=== PATIENT | female | born 1935 | race Caucasian/White ===

== ENCOUNTER 2024-10-11 15:12 | Observation (INO) ==
[2024-10-11 15:31] VITALS: BMI 40.0
--- NOTE | 2024-10-11 16:09 | EKG ---
Test Reason : shortness of breath Blood Pressure : */* mmHG Vent. Rate : 87 BPM Atrial Rate : * BPM P-R Int : * ms QRS Dur : 94 ms QT Int : 344 ms P-R-T Axes : * -20 9 degrees QTc Int : 413 ms Atrial fibrillation with occasional ventricular-paced complexes Cannot rule out Anterior infarct , age undetermined Nonspecific ST and T wave abnormality Abnormal ECG No previous ECGs available Confirmed by Larry Ly MD ([id number]) on 10/12/2024 7:48:59 AM Referred By: Confirmed By: Larry Ly MD
[2024-10-11 16:24] LABS: BASOPHILS % (AUTO) 0.5 % (0.2-1.0); EOSINOPHILS % (AUTO) 0.2 % (0.9-2.9); LYMPHOCYTES # (AUTO) 1.1 X10^3/uL (1.3-2.9); LYMPHOCYTES % (AUTO) 13.7 % (21.0-51.0); MEAN CORPUSCULAR HEMOGLOBIN 31.7 pg (27.0-34.0); MEAN CORPUSCULAR HGB CONC 33.3 g/dL (33.0-35.0); MEAN CORPUSCULAR VOLUME 95.2 fL (80.0-100.0); MEAN PLATELET VOLUME 9.3 fL (7.4-11.0); MONOCYTES # (AUTO) 1.2 x10^3/uL (0.3-0.8); MONOCYTES % (AUTO) 14.8 % (0.0-13.0); NEUTROPHILS # (AUTO) 5.6 x10^3/uL (2.2-4.8); NEUTROPHILS % (AUTO) 70.8 % (42.0-75.0); PLATELET COUNT 158 X10^3/uL (150.0-450.0); RED BLOOD COUNT 4.41 X10^6/uL (3.5-5.4); RED CELL DISTRIBUTION WIDTH 15.1 % (11.6-16.5); WHITE BLOOD COUNT 7.9 X10^3/uL (3.6-10.0)
[2024-10-11 16:45] LABS: ALANINE AMINOTRANSFERASE 28 Units/L (12-78); ALKALINE PHOSPHATASE 145 Units/L (46-116); ASPARTATE AMINO TRANSFERASE 22 Units/L (15-37); BLOOD UREA NITROGEN 14 mg/dL (7-18); CALCIUM 8.6 mg/dL (8.5-10.1); CARBON DIOXIDE 27.5 mmol/L (21-32); CHLORIDE 100 mmol/L (98-107); COR CA(FOR HYPOALB) 9.4 mg/dL (8.5-10.1); COR NA(FOR HYPERGLY) 138 mmol/L (136-145); CREATINE KINASE 56 Units/L (26-192); GLUCOSE 207 mg/dL (65-99); POTASSIUM 4.4 mmol/L (3.5-5.1); SODIUM 135 mmol/L (136-145); TOTAL PROTEIN 6.7 g/dL (6.4-8.2); eGFR NON BLACK RACES 50 (>60)
--- NOTE | 2024-10-11 16:55 | DR.GENAD ---
HPI Time Seen Time Seen by Provider: 10/11/24 16:55 PCP Primary Care Physician: RITU HPI Comment HPI Comment: Patient with complaint of shortness of breath cough and orthopnea worsening over the last 2 nights. Patient does have a history of CHF and COPD. She only uses Lasix as needed. Denies any chest pain Complaint/Symptoms Chief Complaint:: Family member states for the past couple of days her a-fib has been acting up and then two nights ago she started having a dry cough that has now produced into a productive cough. COVID-19 Coronavirus risk:travel/contact w/high risk person: No Has patient experienced Coronavirus symptoms: No Source History Provided: Family Member Mode of Arrival Mode of Arrival: Wheelchair Timing Onset of Chief Complaint: 10/09/24 PMH PMH Past Medical History: Yes Past Medical History: CHF, COPD, Dementia, Diabetes, Dyslipidemia, Hypothyroidism and Sleep Apnea Past Medical History Comment: a-fib, pacemaker/defib Past Surgical History: Yes Surgical History: Ortho Surgery Past Surgical History Comment: cataracts, hip x2, knee Family History History of Family Medical Conditions: Yes Family Medical History: Coronary Artery Disease Social History Does patient currently use any type of tobacco product: No Have you used tobacco products in the last 12 months: No Type of Tobacco Use: None Does any household member use tobacco: No Alcohol Use: None Do you use any recreational Drugs:: No Lives With: Family Lives Where: Home Travel Risk Coronavirus risk:travel/contact w/high risk person: No Has patient experienced Coronavirus symptoms: No Infectious screening In the last 2 months have you had wt loss of >10#?: NO Have you had fever, night sweats or hemotysis?: No Have you traveled outside the country in the last 6 months?: No Isolation: Standard ROS Review of Systems Constitutional: No Symptoms Reported Eyes: No Symptoms Reported ENTM: No Symptoms Reported Respiratoy: See HPI and Short of Breath Cardiovascular: See HPI, Edema and Other (Chronic A-fib on Eliquis); negative Chest Pain or Syncope Gastrointestinal/Abdominal: No Symptoms Reported Genitourinary: No Symptoms Reported Neurological: No Symptoms Reported Musculoskeletal: No Symptoms Reported Integumentary: No Symptoms Reported Hematologic/Lymphatic: No Symptoms Reported Endocrine: No Symptoms Reported Psychiatric: No Symptoms Reported All Other Systems: Reviewed and Negative PE Vital Signs Vitals: Vital Signs Temperature 98.3 F Pulse Rate 86 Pulse Rate 85 Pulse Rate 95 Pulse Rate 89 Pulse Rate 88 Pulse Rate 77 Pulse Rate 87 Pulse Rate 84 Pulse Rate 89 Pulse Rate 87 Respiratory Rate 22 Respiratory Rate 27 Respiratory Rate 26 Respiratory Rate 26 Respiratory Rate 26 Respiratory Rate 27 Respiratory Rate 26 Blood Pressure 118/65 Blood Pressure 128/69 Blood Pressure 119/62 Blood Pressure 128/86 O2 Sat by Pulse Oximetry 92 O2 Sat by Pulse Oximetry 99 O2 Sat by Pulse Oximetry 97 O2 Sat by Pulse Oximetry 99 O2 Sat by Pulse Oximetry 99 O2 Sat by Pulse Oximetry 98 O2 Sat by Pulse Oximetry 99 O2 Sat by Pulse Oximetry 98 O2 Sat by Pulse Oximetry 98 O2 Sat by Pulse Oximetry 96 General Limitations: No Limitations General Appearance: Alert and In Distress (Shortness of breath and hypoxia) Head Head Exam: Normal Inspection Eyes Eye exam: Normal Appearance ENT ENT Exam: Normal Exam External Ear Exam: Normal External Inspection TM/Canal Exam: Bilateral: Normal Nose Exam: Normal Nose Exam Mouth Exam: Normal Inspection Throat Exam: Normal Inspection Neck Neck Exam: Normal Inspection Chest Chest Inspection: Normal Inspection Respiratory Respiratory Exam: Normal Lung Sounds Bilat Respiratory Exam: Bilateral: Wheezing and Bilateral: Crackles Cardiovascular Cardiovascular Exam: Regular Rate and Normal Rhythm Abdominal Exam Abdominal Exam: Normal Inspection, Normal Bowel Sounds and Soft Extremities Extremities Exam: Normal Inspection Back Back Exam: Normal Inspection Neurologic Neurological Exam: Alert and Oriented X3 Psychiatric Psychiatric Exam: Normal Affect and Normal Mood Skin Skin Exam: Warm, Dry, Intact and Normal Color COURSE Consultation Called: 18:40 Consultation Comments: Discussed case with Dr. Bravo. She is agreeable with admission for CHF and COPD exacerbation. Patient does happen to have UTI and wi ll treat with antibiotics. Patient had Lasix and a breathing treatment and had some improvement, however she still having need of oxygen to maintain O2 sats over 94%. [facility] Labs Reviewed 10/11/24 16:11 10/11/24 16:11 Laboratory: WBC 7.9 X10^3/uL (3.6-10.0) 10/11/24 16:11 RBC 4.41 X10^6/uL (3.5-5.4) 10/11/24 16:11 Hgb 14.0 g/dL (12.0-16.0) 10/11/24 16:11 Hct 42.0 % (36.0-47.0) 10/11/24 16:11 MCV 95.2 fL (80.0-100.0) 10/11/24 16:11 MCH 31.7 pg (27.0-34.0) 10/11/24 16:11 MCHC 33.3 g/dL (33.0-35.0) 10/11/24 16:11 RDW 15.1 % (11.6-16.5) 10/11/24 16:11 Plt Count 158 X10^3/uL (150.0-450.0) 10/11/24 16:11 MPV 9.3 fL (7.4-11.0) 10/11/24 16:11 Neut % (Auto) 70.8 % (42.0-75.0) 10/11/24 16:11 Lymph % (Auto) 13.7 % (21.0-51.0) L 10/11/24 16:11 [place] % (Auto) 14.8 % (0.0-13.0) H 10/11/24 16:11 Eos % (Auto) 0.2 % (0.9-2.9) L 10/11/24 16:11 Baso % (Auto) 0.5 % (0.2-1.0) 10/11/24 16:11 Neut # (Auto) 5.6 x10^3/uL (2.2-4.8) H 10/11/24 16:11 Lymph # (Auto) 1.1 X10^3/uL (1.3-2.9) L 10/11/24 16:11 [place] # (Auto) 1.2 x10^3/uL (0.3-0.8) H 10/11/24 16:11 Eos # (Auto) 0.0 x10^3/uL (0.0-0.2) 10/11/24 16:11 Baso # (Auto) 0.0 X10^3/uL (0.0-0.1) 10/11/24 16:11 Absolute Nucleated RBC 0.1 /100WBC 10/11/24 16:11 Sodium 135 mmol/L (136-145) L 10/11/24 16:11 Corrected Sodium 138 mmol/L (136-145) 10/11/24 16:11 Potassium 4.4 mmol/L (3.5-5.1) 10/11/24 16:11 Chloride 100 mmol/L (98-107) 10/11/24 16:11 Carbon Dioxide 27.5 mmol/L (21-32) 10/11/24 16:11 BUN 14 mg/dL (7-18) 10/11/24 16:11 Creatinine 1.10 mg/dL (0.55-1.02) H 10/11/24 16:11 Est GFR (MDRD) Af Amer > 60 (>60) 10/11/24 16:11 Est GFR (MDRD) Non-Af 50 (>60) L 10/11/24 16:11 Glucose 207 mg/dL (65-99) H 10/11/24 16:11 Calcium 8.6 mg/dL (8.5-10.1) 10/11/24 16:11 Corrected Calcium 9.4 mg/dL (8.5-10.1) 10/11/24 16:11 Total Bilirubin 0.60 mg/dL (0.2-1.0) 10/11/24 16:11 AST 22 Units/L (15-37) 10/11/24 16:11 ALT 28 Units/L (12-78) 10/11/24 16:11 Alkaline Phosphatase 145 Units/L (46-116) H 10/11/24 16:11 Creatine Kinase 56 Units/L (26-192) 10/11/24 16:11 Troponin I High Sens 19.5 ng/L (4.0-60.0) 10/11/24 16:11 B-Natriuretic Peptide 796 pg/mL (0-79) H 10/11/24 16:11 Total Protein 6.7 g/dL (6.4-8.2) 10/11/24 16:11 Albumin 3.0 g/dL (3.4-5.0) L 10/11/24 16:11 Globulin 3.7 g/dL (2.5-4.5) 10/11/24 16:11 Albumin/Globulin Ratio 0.8 Ratio (1.1-2.1) L 10/11/24 16:11 Specimen Type Clean catch urine 10/11/24 17:55 Urine Color Yellow (YELLOW) 10/11/24 17:55 Urine Appearance Hazy (CLEAR) 10/11/24 17:55 Urine pH 6.0 (5.0 - 8.0) 10/11/24 17:55 Ur Specific [place] 1.020 (1.000-1.030) 10/11/24 17:55 Urine Protein 2+ (NEGATIVE) 10/11/24 17:55 Urine Glucose (UA) Negative (NEGATIVE) 10/11/24 17:55 Urine Ketones Negative (NEGATIVE) 10/11/24 17:55 Urine Blood 3+ (NEGATIVE) 10/11/24 17:55 Urine Nitrite Negative (NEGATIVE) 10/11/24 17:55 Urine Bilirubin Negative (NEGATIVE) 10/11/24 17:55 Urine Urobilinogen Normal (NORMAL) 10/11/24 17:55 Ur Leukocyte Esterase 1+ (NEGATIVE) 10/11/24 17:55 Urine RBC 0-2 /HPF (0-3) 10/11/24 17:55 Urine WBC 0-2 /HPF (0-5) 10/11/24 17:55 Ur Squamous Epith Cells Rare /HPF (NEGATIVE) 10/11/24 17:55 Urine Bacteria 3+ /HPF (NEGATIVE) 10/11/24 17:55 Urine Yeast Few /HPF (NEGATIVE) 10/11/24 17:55 Ur Culture Indicated? Yes/culture set up 10/11/24 17:55 SARS-CoV-2 (PCR) Negative (NEGATIVE) 10/11/24 16:03 Influenza Type A (PCR) Negative (NEGATIVE) 10/11/24 16:03 Influenza Type B (PCR) Negative (NEGATIVE) 10/11/24 16:03 RSV (PCR) Negative (NEGATIVE) 10/11/24 16:03 Opioid Opioid Risk Tool Age (Santiago box if 16-45): No History of Preadolescent Sexual Abuse: No Total: 0 Total Score Risk Category: Low Risk Copyright: Tigre VARGAS predicting aberrant behaviors Discharge Plan Diagnosis Discharge Problem: COPD exacerbation, Hypoxia CHF exacerbation Qualifiers: Heart failure type: unspecified Qualified Code(s): I50.9 - Heart failure, unspecified Discharge Plan Patient Disposition: 09 ADMITTED INPATIENT Condition: Stable Prescriptions: No Action Januvia 100 mg tablet 100 mg PO QDAY albuterol sulfate 90 mcg/actuation HFA aerosol inhaler 2 puff inhalation PRN PRN carvedilol 12.5 mg tablet 12.5 mg PO BID montelukast 10 mg tablet 10 mg PO QDAY lisinopril 5 mg tablet 5 mg PO QDAY levothyroxine 25 mcg tablet 12.5 mcg PO QDAY tramadol 50 mg Tablet 50 mg PO DAILY PRN spironolactone 25 mg Tablet 25 mg PO DAILY simvastatin 40 mg Tablet 40 mg PO HS Trelegy Ellipta 100-62.5-25 mcg Blister With Device 2 inh INHALATION DAILY Eliquis 5 mg tablet 5 mg PO BID Health Concerns: Post Hospitalization: new medications and changes needed to prevent readmission or further decline. Pt educated and given instructions on all concerns. Plan of Treatment: Continue with present treatment and follow up plan. Pt is to keep follow up appointment as instructed and take medications as ordered. Orders to Discharge Patient Discharge Orders: Transfer (Routine); Ordered 10/11/24 Ordered By: Cornell Seo Follow ups/Referrals Follow ups/Referrals: [facility],None [Primary Care Provider] - 3 days Instructions Stand Alone Forms: Find Help Web Site, Post Hospital Follow Up Care
[2024-10-11] MEDS ORDERED: LASIX ONE (17:23)
[2024-10-11] MEDS ORDERED: DUONEB 0.5 MG/3 MG (3 mL) NEB ONE (17:23)
[2024-10-11] MEDS: LASIX IVP ONE (17:24)
[2024-10-11] MEDS: DUONEB 0.5 MG/3 MG (3 mL) NEB ONE (17:24)
[2024-10-11 18:02] LABS: BILIRUBIN,URINE NEGATIVE (NEGATIVE); BLOOD/HEMOGLOBIN,URINE 3+ (NEGATIVE); GLUCOSE, URINE NEGATIVE (NEGATIVE); KETONES,URINE NEGATIVE (NEGATIVE); LEUKOCYTE ESTERASE ,URINE 1+ (NEGATIVE); NITRITES,URINE NEGATIVE (NEGATIVE); PROTEIN,URINE 2+ (NEGATIVE); UROBILINOGEN,URINE NORMAL (NORMAL)
[2024-10-11 18:18] LABS: APPEARANCE,URINE HAZY (CLEAR); COLOR,URINE YELLOW (YELLOW)
[2024-10-11 18:19] LABS: BACTERIA,URINE 3+ /HPF (NEGATIVE); RBC,URINE 0-2 /HPF (0-3); SQUAMOUS EPITHELIAL CELL,UR RARE /HPF (NEGATIVE); YEAST,URINE FEW /HPF (NEGATIVE)
[2024-10-11] MEDS ORDERED: CONSULT PHARMACY - POTASSIUM & MAGNESIUM XX SCH (20:09)
[2024-10-11] MEDS: MACROBID CAP 100 MG EXT REL PO SCH (21:30)
[2024-10-11] MEDS: COREG TAB 12.5 MG PO SCH (21:30)
[2024-10-11] MEDS: ELIQUIS PO SCH (21:30)
[2024-10-11] MEDS: ZOCOR TAB 40 MG PO SCH (21:30)
[2024-10-11] MEDS: PULMICORT NEB TX 0.5 MG NEB SCH (22:11)
[2024-10-11] MEDS: DUONEB 0.5 MG/3 MG (3 mL) NEB SCH (22:11)
[2024-10-11 22:28] LABS: ABG BASE EXCESS 3.3 mmol/L (-2.0-2.0); ABG HCO3 29.5 mmol/L (22-26)
[2024-10-11 22:30] LABS: ABG ALLEN TEST POS
[2024-10-11] MEDS: SNACK - Diabetic Appropriate PO SCH (22:42)
[2024-10-12] MEDS: LASIX IVP ONE (02:54)
--- NOTE | 2024-10-12 05:08 | RAD ---
EXAM: CHEST, 1 VIEW HISTORY: Family member states for the past couple of days her a-fib has been acting up and then two nights ago she started having a dry cough, SOB; COMPARISON: 08/02/2023 FINDINGS: The trachea is midline. The cardiac silhouette is mildly enlarged. Permanent pacing device.. The l ungs are clear without focal infiltrate or effusion. The bony thorax is unremarkable. IMPRESSION: Mild cardiomegaly No active cardiopulmonary disease THIS IS AN ELECTRONICALLY VERIFIED FINAL REPORT 10/12/2024 5:04 AM - Electronically signed by Ryan Smart MD
[2024-10-12 05:34] LABS: HEMOGLOBIN 13.7 g/dL (12.0-16.0); MEAN CORPUSCULAR VOLUME 94.7 fL (80.0-100.0); WHITE BLOOD COUNT 7.7 X10^3/uL (3.6-10.0)
[2024-10-12 05:40] LABS: BASOPHILS % (AUTO) 0.3 % (0.2-1.0); EOSINOPHILS # (AUTO) 0.1 x10^3/uL (0.0-0.2); EOSINOPHILS % (AUTO) 1.1 % (0.9-2.9); HEMATOCRIT 40.8 % (36.0-47.0); LYMPHOCYTES # (AUTO) 1.1 X10^3/uL (1.3-2.9); LYMPHOCYTES % (AUTO) 14.1 % (21.0-51.0); MEAN CORPUSCULAR HEMOGLOBIN 31.8 pg (27.0-34.0); MEAN CORPUSCULAR HGB CONC 33.6 g/dL (33.0-35.0); MEAN PLATELET VOLUME 9.6 fL (7.4-11.0); MONOCYTES # (AUTO) 1.3 x10^3/uL (0.3-0.8); NEUTROPHILS # (AUTO) 5.2 x10^3/uL (2.2-4.8); NEUTROPHILS % (AUTO) 67.5 % (42.0-75.0); PLATELET COUNT 141 X10^3/uL (150.0-450.0); RED BLOOD COUNT 4.31 X10^6/uL (3.5-5.4); RED CELL DISTRIBUTION WIDTH 14.9 % (11.6-16.5)
[2024-10-12 05:50] LABS: ALANINE AMINOTRANSFERASE 25 Units/L (12-78); ALBUMIN 3.1 g/dL (3.4-5.0); ALKALINE PHOSPHATASE 135 Units/L (46-116); ASPARTATE AMINO TRANSFERASE 21 Units/L (15-37); BLOOD UREA NITROGEN 12 mg/dL (7-18); CALCIUM 8.9 mg/dL (8.5-10.1); CARBON DIOXIDE 30.8 mmol/L (21-32); CHLORIDE 100 mmol/L (98-107); COR CA(FOR HYPOALB) 9.6 mg/dL (8.5-10.1); COR NA(FOR HYPERGLY) 140 mmol/L (136-145); CREATININE 0.83 mg/dL (0.55-1.02); GLUCOSE 141 mg/dL (65-99); POTASSIUM 3.5 mmol/L (3.5-5.1); SODIUM 139 mmol/L (136-145); TOTAL PROTEIN 6.6 g/dL (6.4-8.2); eGFR NON BLACK RACES > 60 (>60)
[2024-10-12] MEDS ORDERED: CONSULT PHARMACY - POTASSIUM & MAGNESIUM XX SCH (08:00)
--- NOTE | 2024-10-12 08:04 | RAD ---
EXAM:Portable chestHISTORY:Shortness of breathCOMPARISON:10/11/2024FINDINGS:Ther e is a pacemaker present in the left axilla. Heart remains enlarged. No congestive heart failure is noted. No acute alveolar infiltrates or pleural effusions identified. Bony thorax is unremarkable.IMPRESSION:Continued cardiomegaly without congestive heart failureNo definite acute infiltratesTHIS IS AN ELECTRONICALLY VERIFIED FINAL [id number]/12/2024 8:01 AM - Electronically signed by Kolton Jaquez MD
[2024-10-12 08:36] LABS: BILIRUBIN,URINE NEGATIVE (NEGATIVE); BLOOD/HEMOGLOBIN,URINE 1+ (NEGATIVE); GLUCOSE, URINE NEGATIVE (NEGATIVE); KETONES,URINE NEGATIVE (NEGATIVE); LEUKOCYTE ESTERASE ,URINE NEGATIVE (NEGATIVE); NITRITES,URINE NEGATIVE (NEGATIVE); PROTEIN,URINE NEGATIVE (NEGATIVE); UROBILINOGEN,URINE NORMAL (NORMAL)
[2024-10-12 08:49] LABS: APPEARANCE,URINE CLEAR (CLEAR); BACTERIA,URINE NEGATIVE /HPF (NEGATIVE); COLOR,URINE YELLOW (YELLOW); RBC,URINE 0-2 /HPF (0-3); SQUAMOUS EPITHELIAL CELL,UR RARE /HPF (NEGATIVE)
[2024-10-12] MEDS ORDERED: PATIENT'S HOME MEDICATION (Fluticasone-Umeclidin-Vilanter [Trelegy Ellipta] 100-62.5-25 mc IN SCH (09:00)
[2024-10-12] MEDS: ZESTRIL TAB 5 MG PO SCH (09:24)
[2024-10-12] MEDS: JANUVIA PO SCH (09:25)
[2024-10-12] MEDS: SINGULAIR TAB 10 MG PO SCH (09:25)
[2024-10-12] MEDS: ALDACTONE TAB 25 MG PO SCH (09:25)
[2024-10-12] MEDS: SYNTHROID 25 mcg TAB PO SCH (09:26)
[2024-10-12] MEDS: K-DUR TAB 20 MEQ PO SCH (09:26)
[2024-10-12] MEDS: LASIX IVP SCH (09:26)
[2024-10-12] MEDS ORDERED: SOLU-Medrol 40 MG VIAL IVP ONE (09:41)
[2024-10-12] MEDS ORDERED: ROCEPHIN VIAL 1 GRAM 1 G in NS 100 ML IV 100 ML IV SCH (09:45)
[2024-10-12] MEDS: NS 250 ML IV 250 ML IV ONE (11:20)
[2024-10-12] MEDS: SOLU-Medrol 40 MG VIAL IVP NR ×2 (11:22→15:28)
[2024-10-12] MEDS: ROCEPHIN VIAL 1 GRAM 1 G in NS 100 ML IV 100 ML IV SCH (11:22)
--- NOTE | 2024-10-12 12:48 | DR.CONSULT ---
CONSULT Consultation for Day of: Date: 10/12/24 Chief Complaint Chief Complaint: sob/cough/elevated hr Allergies Allergies Allergy/AdvReac Type Severity Reaction Status Date / Time prednisone Allergy Verified 08/01/24 10:17 History of Present Illness History of Present Illness: 89 yo female- no known cad( cath 2011/last stress 11/15)- had pulm side effects to amio thus stopped- multaq failed so now in 100% afib- problem is her ventricle went from 60% to 40% to 30 % on recent echo- sick fow week w cough/sob/fast hr to 160- better today after 1.8 liters diuresised Past Medical History Past Medical History: CHF, COPD, Dementia, Diabetes, Dyslipidemia, Hypothyroidism and Sleep Apnea Past Surgical History Surgical History: Unknown Family History Family Medical History: Diabetes Mellitus, Heart Failure and Hypertension Social History Does patient currently use any type of tobacco product: No Have you used tobacco products in the last 12 months: No Type of Tobacco Use: None Does any household member use tobacco: No Alcohol Use: None Drug Use: None Medications Home Medications: prednisone Allergy (Verified 08/01/24 10:17) CONTINUE taking the following medications apixaban 5 mg tablet (Eliquis) 5 mg PO BID 10/11/24 [History] Physical Exam Vital Signs: Vital Signs Temperature 97.8 F Pulse Rate [Left] 109 Pulse Rate 105 Pulse Rate 101 Respiratory Rate 20 Blood Pressure [Left Arm] 121/76 O2 Sat by Pulse Oximetry 96 O2 Sat by Pulse Oximetry 96 O2 Sat by Pulse Oximetry 96 sob wearing mask irreg irreg hr 90-100 lungs: dont sound bad soft cecilia pacer ok mild edema labs: hct 40 wbc 7.7 abg on fio2 28= 7.37 51 137 bnp 796 k 3.5 trop x 3 negative cxr: cardiomegaly w/o chf Plan (1) CHF exacerbation: Status: Acute Qualifiers: Heart failure type: unspecified Qualified Code(s): I50.9 - Heart failure, unspecified Narrative Support Text: diuresis as you are doing. add dig for rate control- cant push bb due to lungs- change scotty to entresto ( kidney ok) (2) COPD exacerbation: Status: Acute (3) Thoracic aortic aneurysm (TAA): Status: Acute Narrative Support Text: no longer following due to age (4) Cardiomyopathy: Status: None Narrative Support Text: suspect drop in EF due to afib/100% v paced in RV- will consider biv device in future (5) HLD (hyperlipidemia): Status: None (6) Essential hypertension: Status: None (7) Atrial fibrillation: Status: None
[2024-10-12] MEDS: LANOXIN or DIGITEK PO SCH (15:30)
[2024-10-12] MEDS: NovoLIN R (or HumuLIN R) SUBCUT PRN (21:50)
[2024-10-12] MEDS: NovoLIN R (or HumuLIN R) ONE (21:54)
--- NOTE | 2024-10-12 23:13 | DR.H&P ---
H&P History & Physical for Day of: H&P Date: 10/12/24 Chief Complaint Chief Complaint: Shortness of breath History of Present Illness History of Present Illness: Patient is a 89-year-old female with a past medical history of CHF, COPD, type 2 diabetes mellitus, hypothyroidism, JOSE DE JESUS, presenting with worsening shortness of breath for the past few days. Per daughter, patient was recently discovered to have worsening CHF by her vice president business & corporate development. She had her recent echo that revealed a low ejection fraction. We will need to get records. Labs/imaging: WBC 7.7, hemoglobin 13.7, platelets 141, sodium 139, potassium 3.5, creatinine 0.83, glucose 141, magnesium 1.6, troponin negative x 3, BNP 796, ABG: pH 7.37, pCO2 51, pO2 137, HCO3 29, 99% O2 sat on FiO2 28%. COVID/flu/RSV negative, UA consistent with infection, chest x-ray revealed no acute cardiopulmonary findings, urine culture prelim positive for gram-negative rods, blood cultures pending. Will treat and admit patient for CHF exacerbation, COPD exacerbation, acute cystitis, hypomagnesemia. Will get records for recent echo. Will also consult cardiologyDr. Aliyah. Start on IV antibiotics Rocephin. IV steroids Solu-Medrol 40 mg daily. Scheduled bronchodilators. Restart home medications. Wean/titrate supplemental oxygen as tolerated. Otherwise continue with current treatment plan. Continue closely monitor and follow-up labs/imaging as well as recommendations from cardiology. Past Medical History Past Medical History: CHF, COPD, Dementia, Diabetes, Dyslipidemia, Hypothyroidism and Sleep Apnea Past Surgical History Surgical History: Unknown Family History Family Medical History: Diabetes Mellitus, Heart Failure and Hypertension Social History Does patient currently use any type of tobacco product: No Have you used tobacco products in the last 12 months: No Type of Tobacco Use: None Does any household member use tobacco: No Alcohol Use: None Drug Use: None Medications Home Medications: Home Medications Medication Instructions Recorded Confirmed Type albuterol sulfate 90 mcg/actuation 2 puff inhalation PRN PRN 06/29/23 10/11/24 History aerosol inhaler carvedilol 12.5 mg tablet 12.5 mg PO BID 06/29/23 10/11/24 History levothyroxine 25 mcg tablet 12.5 mcg PO QDAY 06/29/23 10/11/24 History lisinopril 5 mg tablet 5 mg PO QDAY 06/29/23 10/11/24 History montelukast 10 mg tablet 10 mg PO QDAY 06/29/23 10/11/24 History sitagliptin phosphate 100 mg 100 mg PO QDAY 06/29/23 10/11/24 History tablet (Januvia) fluticasone fur. 100 mcg-umeclid 2 inh inhalation DAILY 02/17/24 10/11/24 History 62.5 mcg-vilant 25 mcg inhalat.powder (Trelegy Ellipta) simvastatin 40 mg tablet 40 mg PO HS 02/17/24 10/11/24 History spironolactone 25 mg tablet 25 mg PO DAILY 02/17/24 10/11/24 History tramadol 50 mg tablet 50 mg PO DAILY PRN 02/17/24 10/11/24 History apixaban 5 mg tablet (Eliquis) 5 mg PO BID 10/11/24 10/11/24 History Allergies Allergies Allergy/AdvReac Type Severity Reaction Status Date / Time prednisone Allergy Verified 08/01/24 10:17 Labs 10/12/24 04:46 10/12/24 04:46 Labs: 10/11/24 17:55 Urine,Clean Catch Urine Culture - Preliminary Laboratory WBC 7.7 X10^3/uL (3.6-10.0) 10/12/24 04:46 RBC 4.31 X10^6/uL (3.5-5.4) 10/12/24 04:46 Hgb 13.7 g/dL (12.0-16.0) 10/12/24 04:46 Hct 40.8 % (36.0-47.0) 10/12/24 04:46 MCV 94.7 fL (80.0-100.0) 10/12/24 04:46 MCH 31.8 pg (27.0-34.0) 10/12/24 04:46 MCHC 33.6 g/dL (33.0-35.0) 10/12/24 04:46 RDW 14.9 % (11.6-16.5) 10/12/24 04:46 Plt Count 141 X10^3/uL (150.0-450.0) L 10/12/24 04:46 MPV 9.6 fL (7.4-11.0) 10/12/24 04:46 Neut % (Auto) 67.5 % (42.0-75.0) 10/12/24 04:46 Lymph % (Auto) 14.1 % (21.0-51.0) L 10/12/24 04:46 [place] % (Auto) 17.0 % (0.0-13.0) H 10/12/24 04:46 Eos % (Auto) 1.1 % (0.9-2.9) 10/12/24 04:46 Baso % (Auto) 0.3 % (0.2-1.0) 10/12/24 04:46 Neut # (Auto) 5.2 x10^3/uL (2.2-4.8) H 10/12/24 04:46 Lymph # (Auto) 1.1 X10^3/uL (1.3-2.9) L 10/12/24 04:46 [place] # (Auto) 1.3 x10^3/uL (0.3-0.8) H 10/12/24 04:46 Eos # (Auto) 0.1 x10^3/uL (0.0-0.2) 10/12/24 04:46 Baso # (Auto) 0.0 X10^3/uL (0.0-0.1) 10/12/24 04:46 Absolute Nucleated RBC 0.1 /100WBC 10/12/24 04:46 Sample Site Rrad 10/11/24 21:54 ABG pH 7.370 (7.35-7.45) 10/11/24 21:54 ABG pCO2 51.0 mmHg (35.0-45.0) H* 10/11/24 21:54 ABG pO2 137.0 mmHg (80.0-100.0) H 10/11/24 21:54 ABG HCO3 29.5 mmol/L (22-26) H 10/11/24 21:54 ABG O2 Saturation 99.0 % (90-100) 10/11/24 21:54 ABG Base Excess 3.3 mmol/L (-2.0-2.0) H 10/11/24 21:54 [place] Test Pos 10/11/24 21:54 A-a Gradient -1.0 mmHg 10/11/24 21:54 FiO2 28.0 10/11/24 21:54 Blood Gas Comments Da abg well-mtf/mt 10/11/24 21:54 Sodium 139 mmol/L (136-145) 10/12/24 04:46 Corrected Sodium 140 mmol/L (136-145) 10/12/24 04:46 Potassium 3.5 mmol/L (3.5-5.1) 10/12/24 04:46 Chloride 100 mmol/L (98-107) 10/12/24 04:46 Carbon Dioxide 30.8 mmol/L (21-32) 10/12/24 04:46 BUN 12 mg/dL (7-18) 10/12/24 04:46 Creatinine 0.83 mg/dL (0.55-1.02) 10/12/24 04:46 Est GFR (MDRD) Af Amer > 60 (>60) 10/12/24 04:46 Est GFR (MDRD) Non-Af > 60 (>60) 10/12/24 04:46 Glucose 141 mg/dL (65-99) H 10/12/24 04:46 POC Glucose (mg/dL) 364 mg/dL (65-99) H 10/12/24 20:55 Calcium 8.9 mg/dL (8.5-10.1) 10/12/24 04:46 Corrected Calcium 9.6 mg/dL (8.5-10.1) 10/12/24 04:46 Magnesium 1.6 mg/dL (2.0-2.9) L 10/12/24 04:46 Total Bilirubin 0.70 mg/dL (0.2-1.0) 10/12/24 04:46 AST 21 Units/L (15-37) 10/12/24 04:46 ALT 25 Units/L (12-78) 10/12/24 04:46 Alkaline Phosphatase 135 Units/L (46-116) H 10/12/24 04:46 Creatine Kinase 56 Units/L (26-192) 10/11/24 16:11 Troponin I High Sens 20.1 ng/L (4.0-60.0) 10/12/24 04:46 B-Natriuretic Peptide 796 pg/mL (0-79) H 10/11/24 16:11 Total Protein 6.6 g/dL (6.4-8.2) 10/12/24 04:46 Albumin 3.1 g/dL (3.4-5.0) L 10/12/24 04:46 Globulin 3.5 g/dL (2.5-4.5) 10/12/24 04:46 Albumin/Globulin Ratio 0.9 Ratio (1.1-2.1) L 10/12/24 04:46 TSH 3rd Generation 0.343 uIU/mL (0.358-3.74) L 10/12/24 04:45 Specimen Type Clean catch urine 10/12/24 07:49 Urine Color Yellow (YELLOW) 10/12/24 07:49 Urine Appearance Clear (CLEAR) 10/12/24 07:49 Urine pH 6.0 (5.0 - 8.0) 10/12/24 07:49 Ur Specific [place] 1.015 (1.000-1.030) 10/12/24 07:49 Urine Protein Negative (NEGATIVE) 10/12/24 07:49 Urine Glucose (UA) Negative (NEGATIVE) 10/12/24 07:49 Urine Ketones Negative (NEGATIVE) 10/12/24 07:49 Urine Blood 1+ (NEGATIVE) 10/12/24 07:49 Urine Nitrite Negative (NEGATIVE) 10/12/24 07:49 Urine Bilirubin Negative (NEGATIVE) 10/12/24 07:49 Urine Urobilinogen Normal (NORMAL) 10/12/24 07:49 Ur Leukocyte Esterase Negative (NEGATIVE) 10/12/24 07:49 Urine RBC 0-2 /HPF (0-3) 10/12/24 07:49 Urine WBC 0-2 /HPF (0-5) 10/12/24 07:49 Ur Squamous Epith Cells Rare /HPF (NEGATIVE) 10/12/24 07:49 Urine Bacteria Negative /HPF (NEGATIVE) 10/12/24 07:49 Urine Yeast Few /HPF (NEGATIVE) 10/11/24 17:55 Ur Culture Indicated? No/not indicated 10/12/24 07:49 SARS-CoV-2 (PCR) Negative (NEGATIVE) 10/11/24 16:03 Influenza Type A (PCR) Negative (NEGATIVE) 10/11/24 16:03 Influenza Type B (PCR) Negative (NEGATIVE) 10/11/24 16:03 RSV (PCR) Negative (NEGATIVE) 10/11/24 16:03 Review of Systems Constitutional: Weakness Eyes: No Symptoms Reported ENT: No Symptoms Reported Respiratory: Cough, Shortness of Breath and Wheezing Cardiovascular: No Symptoms Reported Gastrointestinal: No Symptoms Reported Genitourinary: No Symptoms Reported Musculoskeletal: No Symptoms Reported Skin: No Symptoms Reported Neurological: No Symptoms Reported Physical Exam Vital Signs: Vital Signs Temperature 97.6 F Temperature 97.4 F Pulse Rate [Left] 127 Pulse Rate [Left] 123 Pulse Rate 107 Pulse Rate 105 Respiratory Rate 20 Respiratory Rate 23 Blood Pressure [Left Arm] 133/78 Blood Pressure [Left Arm] 121/74 O2 Sat by Pulse Oximetry 91 O2 Sat by Pulse Oximetry 91 O2 Sat by Pulse Oximetry 92 Oriented: Normal Eyes: Normal Ear: Normal Nose: Normal Throat: Normal Respiratory: Diminished Throughout Cardiovascular: Normal : Normal Auscultation: Bowel Sounds: Normal Palpation: Normal Tenderness: Normal Skin: Normal Musculoskeletal: Normal Psychiatric: Normal Mood Description: Calm and Appropriate Affect: Normal Speech Pattern: Clear and Appropriate Assessment/Plan (1) CHF exacerbation: Qualifiers: Heart failure type: unspecified Qualified Code(s): I50.9 - Heart failure, unspecified Status: Acute (2) COPD exacerbation: Status: Acute (3) Thoracic aortic aneurysm (TAA): Status: Acute (4) Cardiomyopathy: Status: None (5) HLD (hyperlipidemia): Status: None (6) Essential hypertension: Status: None (7) Atrial fibrillation: Status: None (8) Acute cystitis: Status: Acute Review H&P Reviewed: Yes Patient was examined?: Yes
[2024-10-13 05:29] LABS: BASOPHILS % (AUTO) 0.1 % (0.2-1.0); HEMATOCRIT 42.5 % (36.0-47.0); HEMOGLOBIN 14.3 g/dL (12.0-16.0); LYMPHOCYTES % (AUTO) 11.4 % (21.0-51.0); MEAN CORPUSCULAR HEMOGLOBIN 31.4 pg (27.0-34.0); MEAN CORPUSCULAR HGB CONC 33.5 g/dL (33.0-35.0); MEAN CORPUSCULAR VOLUME 93.9 fL (80.0-100.0); MEAN PLATELET VOLUME 9.7 fL (7.4-11.0); MONOCYTES # (AUTO) 1.2 x10^3/uL (0.3-0.8); MONOCYTES % (AUTO) 13.5 % (0.0-13.0); NEUTROPHILS # (AUTO) 6.9 x10^3/uL (2.2-4.8); PLATELET COUNT 187 X10^3/uL (150.0-450.0); RED BLOOD COUNT 4.53 X10^6/uL (3.5-5.4); RED CELL DISTRIBUTION WIDTH 15.3 % (11.6-16.5); WHITE BLOOD COUNT 9.2 X10^3/uL (3.6-10.0)
[2024-10-13 05:47] LABS: ALANINE AMINOTRANSFERASE 28 Units/L (12-78); ALBUMIN 3.1 g/dL (3.4-5.0); ALKALINE PHOSPHATASE 154 Units/L (46-116); ASPARTATE AMINO TRANSFERASE 19 Units/L (15-37); BLOOD UREA NITROGEN 19 mg/dL (7-18); CALCIUM 9.5 mg/dL (8.5-10.1); CHLORIDE 100 mmol/L (98-107); COR CA(FOR HYPOALB) 10.2 mg/dL (8.5-10.1); COR NA(FOR HYPERGLY) 142 mmol/L (136-145); CREATININE 1.06 mg/dL (0.55-1.02); GLUCOSE 238 mg/dL (65-99); MAGNESIUM 1.7 mg/dL (2.0-2.9); POTASSIUM 3.8 mmol/L (3.5-5.1); SODIUM 139 mmol/L (136-145); TOTAL PROTEIN 7.1 g/dL (6.4-8.2); eGFR NON BLACK RACES 52 (>60)
[2024-10-13] MEDS ORDERED: CONSULT PHARMACY - POTASSIUM & MAGNESIUM XX SCH (07:00)
[2024-10-13] MEDS: SOLU-Medrol 40 MG VIAL IVP SCH (09:17)
[2024-10-13] MEDS: MAG-OX TAB PO SCH (09:17)
[2024-10-13] MEDS: K-DUR TAB 20 MEQ PO SCH (09:17)
[2024-10-13] MEDS: LANOXIN INJ IVP ONE (09:20)
[2024-10-13] MEDS ORDERED: XOPENEX 1.25 MG/3 ML NEBULE NEB ONE (13:14)
[2024-10-13] MEDS: XOPENEX 1.25 MG/3 ML NEBULE NEB SCH (13:16)
[2024-10-13] MEDS ORDERED: MUCOMYST (RESPIRATORY USE ONLY) ONE (19:59)
[2024-10-13] MEDS ORDERED: SNACK - Diabetic Appropriate PO SCH (20:00)
--- NOTE | 2024-10-13 20:13 | PCM.PROG ---
Progress Note Progress Note for Day of Date of Exam: 10/13/24 Subjective Subjective: History/Background 89-year-old white female, admitted on 10-11-2024 for CHF exacerbation and COPD exacerbation. History of atrial fibrillation. Was not on digoxin before admission. Takes albuterol, thyroid medicine, carvedilol, and eliquis at home. Has borderline diabetes managed with Januvia. No home oxygen use. Previous reaction to steroids when younger, details unclear. Clinical Observations Found to be tachycardic this morning with heart rate in 120s to 130s. Monitor shows ST depression with occasional P waves. Non-therapeutic digoxin level (<0.20). Received 250 micrograms IV digoxin. Chest x-ray yesterday showed cardiomegaly without congestive heart failure. Oxygen saturation 93% this morning, down from 96% on admission. Coarse breath sounds with bronchi cracking. No phlegm production despite coughing. Heart rate at 30% to 35%. Blood sugar elevated due to steroids. Magnesium level low at 1.7. No bowel movement since Tuesday or Tuesday. Past Medical Family Social History Allergies: Allergies prednisone Allergy (Verified 08/01/24 10:17) Review of Systems ROS: No change since H&P Vital Signs and I&O's Vital Signs: Vital Signs Temperature 98.4 F Temperature 98.3 F Pulse Rate [Left] 120 Pulse Rate [Left] 115 Respiratory Rate 18 Respiratory Rate 19 Blood Pressure [Left Arm] 122/82 Blood Pressure [Left Arm] 138/89 O2 Sat by Pulse Oximetry 95 O2 Sat by Pulse Oximetry 96 Intake and Output: Intake & Output 10/11/24 10/12/24 10/13/24 10/14/24 11:59 11:59 11:59 11:59 Intake Total 1456 / 1456 720 / 720 Output Total 1850 / 1850 205 / 205 4 Balance -1830 / -1830 1251 / 1251 716 / 716 Physical Exam Oriented: Normal Eyes: Normal Ear: Normal Nose: Normal Throat: Normal Respiratory: Generalized, Diminished and Rhonchi Cardiovascular: Tachycardia : Normal Auscultation: Bowel Sounds: Normal Tenderness: Normal Skin: Normal Musculoskeletal: Normal Psychiatric: Normal Mood Description: Calm and Appropriate Affect: Normal Speech Pattern: Clear and Appropriate Laboratory and Diagnostics 10/13/24 04:25 10/13/24 04:25 Labs: 10/11/24 17:55 Urine,Clean Catch Urine Culture - Final Escherichia Coli 10/11/24 20:45 Blood Blood Culture - Preliminary 10/11/24 20:35 Blood Blood Culture - Preliminary Laboratory WBC 9.2 X10^3/uL (3.6-10.0) 10/13/24 04:25 RBC 4.53 X10^6/uL (3.5-5.4) 10/13/24 04:25 Hgb 14.3 g/dL (12.0-16.0) 10/13/24 04:25 Hct 42.5 % (36.0-47.0) 10/13/24 04:25 MCV 93.9 fL (80.0-100.0) 10/13/24 04:25 MCH 31.4 pg (27.0-34.0) 10/13/24 04:25 MCHC 33.5 g/dL (33.0-35.0) 10/13/24 04:25 RDW 15.3 % (11.6-16.5) 10/13/24 04:25 Plt Count 187 X10^3/uL (150.0-450.0) 10/13/24 04:25 MPV 9.7 fL (7.4-11.0) 10/13/24 04:25 Neut % (Auto) 75.0 % (42.0-75.0) 10/13/24 04:25 Lymph % (Auto) 11.4 % (21.0-51.0) L 10/13/24 04:25 [place] % (Auto) 13.5 % (0.0-13.0) H 10/13/24 04:25 Eos % (Auto) 0.0 % (0.9-2.9) L 10/13/24 04:25 Baso % (Auto) 0.1 % (0.2-1.0) L 10/13/24 04:25 Neut # (Auto) 6.9 x10^3/uL (2.2-4.8) H 10/13/24 04:25 Lymph # (Auto) 1.0 X10^3/uL (1.3-2.9) L 10/13/24 04:25 [place] # (Auto) 1.2 x10^3/uL (0.3-0.8) H 10/13/24 04:25 Eos # (Auto) 0.0 x10^3/uL (0.0-0.2) 10/13/24 04:25 Baso # (Auto) 0.0 X10^3/uL (0.0-0.1) 10/13/24 04:25 Absolute Nucleated RBC 0.0 /100WBC 10/13/24 04:25 Sample Site Rrad 10/11/24 21:54 ABG pH 7.370 (7.35-7.45) 10/11/24 21:54 ABG pCO2 51.0 mmHg (35.0-45.0) H* 10/11/24 21:54 ABG pO2 137.0 mmHg (80.0-100.0) H 10/11/24 21:54 ABG HCO3 29.5 mmol/L (22-26) H 10/11/24 21:54 ABG O2 Saturation 99.0 % (90-100) 10/11/24 21:54 ABG Base Excess 3.3 mmol/L (-2.0-2.0) H 10/11/24 21:54 Louis Test Pos 10/11/24 21:54 A-a Gradient -1.0 mmHg 10/11/24 21:54 FiO2 28.0 10/11/24 21:54 Blood Gas Comments Da abg well-mtf/mt 10/11/24 21:54 Sodium 139 mmol/L (136-145) 10/13/24 04:25 Corrected Sodium 142 mmol/L (136-145) 10/13/24 04:25 Potassium 3.8 mmol/L (3.5-5.1) 10/13/24 04:25 Chloride 100 mmol/L (98-107) 10/13/24 04:25 Carbon Dioxide 30.0 mmol/L (21-32) 10/13/24 04:25 BUN 19 mg/dL (7-18) H 10/13/24 04:25 Creatinine 1.06 mg/dL (0.55-1.02) H 10/13/24 04:25 Est GFR (MDRD) Af Amer > 60 (>60) 10/13/24 04:25 Est GFR (MDRD) Non-Af 52 (>60) L 10/13/24 04:25 Glucose 238 mg/dL (65-99) H 10/13/24 04:25 POC Glucose (mg/dL) 322 mg/dL (65-99) H 10/13/24 19:25 Calcium 9.5 mg/dL (8.5-10.1) 10/13/24 04:25 Corrected Calcium 10.2 mg/dL (8.5-10.1) H 10/13/24 04:25 Magnesium 1.7 mg/dL (2.0-2.9) L 10/13/24 04:25 Total Bilirubin 0.40 mg/dL (0.2-1.0) 10/13/24 04:25 AST 19 Units/L (15-37) 10/13/24 04:25 ALT 28 Units/L (12-78) 10/13/24 04:25 Alkaline Phosphatase 154 Units/L (46-116) H 10/13/24 04:25 Creatine Kinase 56 Units/L (26-192) 10/11/24 16:11 Troponin I High Sens 20.1 ng/L (4.0-60.0) 10/12/24 04:46 B-Natriuretic Peptide 420 pg/mL (0-79) H 10/13/24 13:43 Total Protein 7.1 g/dL (6.4-8.2) 10/13/24 04:25 Albumin 3.1 g/dL (3.4-5.0) L 10/13/24 04:25 Globulin 4.0 g/dL (2.5-4.5) 10/13/24 04:25 Albumin/Globulin Ratio 0.8 Ratio (1.1-2.1) L 10/13/24 04:25 TSH 3rd Generation 0.343 uIU/mL (0.358-3.74) L 10/12/24 04:45 Specimen Type Clean catch urine 10/12/24 07:49 Urine Color Yellow (YELLOW) 10/12/24 07:49 Urine Appearance Clear (CLEAR) 10/12/24 07:49 Urine pH 6.0 (5.0 - 8.0) 10/12/24 07:49 Ur Specific [place] 1.015 (1.000-1.030) 10/12/24 07:49 Urine Protein Negative (NEGATIVE) 10/12/24 07:49 Urine Glucose (UA) Negative (NEGATIVE) 10/12/24 07:49 Urine Ketones Negative (NEGATIVE) 10/12/24 07:49 Urine Blood 1+ (NEGATIVE) 10/12/24 07:49 Urine Nitrite Negative (NEGATIVE) 10/12/24 07:49 Urine Bilirubin Negative (NEGATIVE) 10/12/24 07:49 Urine Urobilinogen Normal (NORMAL) 10/12/24 07:49 Ur Leukocyte Esterase Negative (NEGATIVE) 10/12/24 07:49 Urine RBC 0-2 /HPF (0-3) 10/12/24 07:49 Urine WBC 0-2 /HPF (0-5) 10/12/24 07:49 Ur Squamous Epith Cells Rare /HPF (NEGATIVE) 10/12/24 07:49 Urine Bacteria Negative /HPF (NEGATIVE) 10/12/24 07:49 Urine Yeast Few /HPF (NEGATIVE) 10/11/24 17:55 Ur Culture Indicated? No/not indicated 10/12/24 07:49 Digoxin < 0.20 ng/mL (0.9-2) L 10/13/24 04:25 SARS-CoV-2 (PCR) Negative (NEGATIVE) 10/11/24 16:03 Influenza Type A (PCR) Negative (NEGATIVE) 10/11/24 16:03 Influenza Type B (PCR) Negative (NEGATIVE) 10/11/24 16:03 RSV (PCR) Negative (NEGATIVE) 10/11/24 16:03 Plan (1) CHF exacerbation: Status: Acute Qualifiers: Heart failure type: unspecified Qualified Code(s): I50.9 - Heart failure, unspecified Plan: 1. Repeat chest x-ray today and tomorrow. 2. Perform daily BNP. 3. Increase methylprednisolone to 60 mg twice daily starting tomorrow. 4. Start Lantus 10 units BID for elevated blood sugar. 5. Administer magnesium. 6. Start Colace 100 mg twice daily for constipation. 7. Add acetylcysteine to help loosen mucus. 8. Continue monitoring digoxin levels and adjust as needed. 9. Monitor for steroid side effects, particularly mood changes. 10. Reassess oxygen needs and continue current oxygen therapy. (2) COPD exacerbation: Status: Acute (3) Thoracic aortic aneurysm (TAA): Status: Acute (4) Cardiomyopathy: Status: None (5) HLD (hyperlipidemia): Status: None (6) Essential hypertension: Status: None (7) Atrial fibrillation: Status: None Narrative Support Text: Atrial fibrillation with RVR this morning with a heart rate in the 120s to 130s Patient was started on digoxin yesterday however she is not therapeutic at this time. Plan: Continue anticoagulation with Eliquis Continue carvedilol and digoxin at this time. Repeat digoxin level tomorrow morning. (8) Acute cystitis: Status: Acute
[2024-10-13] MEDS: MUCOMYST (RESPIRATORY USE ONLY) NEB SCH (20:16)
[2024-10-13] MEDS: VISTARIL PO PRN (20:29)
[2024-10-13] MEDS: COLACE CAP 100 MG PO PRN (20:30)
[2024-10-13] MEDS: MILK OF MAGNESIA PO PRN (20:31)
[2024-10-13] MEDS: LANTUS SC SCH (20:34)
[2024-10-14 05:27] LABS: MAGNESIUM 2.3 mg/dL (2.0-2.9)
[2024-10-14 05:29] LABS: BASOPHILS % (AUTO) 0.1 % (0.2-1.0); HEMATOCRIT 40.9 % (36.0-47.0); HEMOGLOBIN 13.8 g/dL (12.0-16.0); LYMPHOCYTES # (AUTO) 1.8 X10^3/uL (1.3-2.9); LYMPHOCYTES % (AUTO) 14.3 % (21.0-51.0); MEAN CORPUSCULAR HEMOGLOBIN 31.5 pg (27.0-34.0); MEAN CORPUSCULAR HGB CONC 33.7 g/dL (33.0-35.0); MEAN CORPUSCULAR VOLUME 93.5 fL (80.0-100.0); MEAN PLATELET VOLUME 9.3 fL (7.4-11.0); MONOCYTES # (AUTO) 1.7 x10^3/uL (0.3-0.8); MONOCYTES % (AUTO) 13.1 % (0.0-13.0); NEUTROPHILS # (AUTO) 9.2 x10^3/uL (2.2-4.8); NEUTROPHILS % (AUTO) 72.5 % (42.0-75.0); PLATELET COUNT 202 X10^3/uL (150.0-450.0); RED BLOOD COUNT 4.37 X10^6/uL (3.5-5.4); RED CELL DISTRIBUTION WIDTH 15.1 % (11.6-16.5); WHITE BLOOD COUNT 12.7 X10^3/uL (3.6-10.0)
[2024-10-14 05:41] LABS: ALANINE AMINOTRANSFERASE 23 Units/L (12-78); ALBUMIN 2.9 g/dL (3.4-5.0); ALKALINE PHOSPHATASE 130 Units/L (46-116); ASPARTATE AMINO TRANSFERASE 19 Units/L (15-37); BLOOD UREA NITROGEN 18 mg/dL (7-18); CALCIUM 9.5 mg/dL (8.5-10.1); CARBON DIOXIDE 34.8 mmol/L (21-32); CHLORIDE 104 mmol/L (98-107); COR CA(FOR HYPOALB) 10.4 mg/dL (8.5-10.1); COR NA(FOR HYPERGLY) 144 mmol/L (136-145); CREATININE 0.83 mg/dL (0.55-1.02); DIGOXIN 0.47 ng/mL (0.9-2); GLUCOSE 175 mg/dL (65-99); SODIUM 142 mmol/L (136-145); TOTAL PROTEIN 6.5 g/dL (6.4-8.2); eGFR NON BLACK RACES > 60 (>60)
--- NOTE | 2024-10-14 07:36 | RAD ---
EXAM:AP chestHISTORY:CHF COPDCOMPARISON:10/12/2024FINDINGS:Stable cardiomegaly and pacemaker. There is no evidence for developing pneumonia, CHF/edema or large pleural effusion.IMPRESSION:No change.THIS IS AN ELECTRONICALLY VERIFIED FINAL [id number]/14/2024 7:33 AM - Electronically signed by Suman Sales MD
[2024-10-14] MEDS: ENTRESTO 24/26 MG TABLET PO SCH (09:51)
[2024-10-14] MEDS: SOLU-Medrol 40 MG VIAL IVP SCH (09:53)
--- NOTE | 2024-10-14 21:15 | PCM.PROG ---
Progress Note Progress Note for Day of Date of Exam: 10/14/24 Subjective Subjective: History/Background 89-year-old white female admitted on 10-11-2024 for CHF exacerbation and COPD exacerbation. History of atrial fibrillation. The patient was experiencing rapid ventricular response (RVR) yesterday with a heart rate in the 130s. Albuterol was changed to levalbuterol to address tachycardia. The patient is receiving digoxin, with levels sub-therapeutic yesterday and today (0.47). BNAT today is 451, up from 420 yesterday. Clinical Observations: The patient's heart rate has decreased from 130s yesterday to around 100 today. Breathing sounds improved compared to yesterday. Patient reports feeling slightly better and breathing easier. Still experiencing side effects from medications, including restlessness and difficulty sleeping from side effects of corticosteroids. Daughter reports patient only slept for about 3 hours last night. Despite side effects, patient shows clinical improvement in respiratory status and overall condition. Decrease Solu-Medrol from 60 mg IV twice daily to 40 mg IV twice daily. Past Medical Family Social History Allergies: Allergies prednisone Allergy (Verified 08/01/24 10:17) Review of Systems ROS: No change since H&P Vital Signs and I&O's Vital Signs: Vital Signs Temperature 97.9 F Temperature 97.6 F Pulse Rate [Left] 114 Pulse Rate [Left] 97 Pulse Rate 96 Respiratory Rate 20 Respiratory Rate 20 Blood Pressure [Left Arm] 105/63 Blood Pressure [Left Arm] 108/66 O2 Sat by Pulse Oximetry 98 O2 Sat by Pulse Oximetry 95 O2 Sat by Pulse Oximetry 97 Intake and Output: Intake & Output 10/12/24 10/13/24 10/14/24 10/15/24 11:59 11:59 11:59 11:59 Intake Total 1456 / 1456 1260 / 1260 680 / 680 Output Total 1850 / 1850 205 / 205 Balance -1830 / -1830 1251 / 1251 1250 / 1250 680 / 680 Physical Exam Oriented: Normal Eyes: Normal Ear: Normal Nose: Normal Throat: Normal Respiratory: Generalized, Diminished and Rhonchi Cardiovascular: Tachycardia : Normal Auscultation: Bowel Sounds: Normal Tenderness: Normal Skin: Normal Musculoskeletal: Normal Psychiatric: Normal Mood Description: Calm and Appropriate Affect: Normal Speech Pattern: Clear and Appropriate Laboratory and Diagnostics 10/14/24 04:48 10/14/24 04:48 Labs: 10/11/24 17:55 Urine,Clean Catch Urine Culture - Final Escherichia Coli 10/11/24 20:45 Blood Blood Culture - Preliminary 10/11/24 20:35 Blood Blood Culture - Preliminary Laboratory WBC 12.7 X10^3/uL (3.6-10.0) H 10/14/24 04:48 RBC 4.37 X10^6/uL (3.5-5.4) 10/14/24 04:48 Hgb 13.8 g/dL (12.0-16.0) 10/14/24 04:48 Hct 40.9 % (36.0-47.0) 10/14/24 04:48 MCV 93.5 fL (80.0-100.0) 10/14/24 04:48 MCH 31.5 pg (27.0-34.0) 10/14/24 04:48 MCHC 33.7 g/dL (33.0-35.0) 10/14/24 04:48 RDW 15.1 % (11.6-16.5) 10/14/24 04:48 Plt Count 202 X10^3/uL (150.0-450.0) 10/14/24 04:48 MPV 9.3 fL (7.4-11.0) 10/14/24 04:48 Neut % (Auto) 72.5 % (42.0-75.0) 10/14/24 04:48 Lymph % (Auto) 14.3 % (21.0-51.0) L 10/14/24 04:48 [place] % (Auto) 13.1 % (0.0-13.0) H 10/14/24 04:48 Eos % (Auto) 0.0 % (0.9-2.9) L 10/14/24 04:48 Baso % (Auto) 0.1 % (0.2-1.0) L 10/14/24 04:48 Neut # (Auto) 9.2 x10^3/uL (2.2-4.8) H 10/14/24 04:48 Lymph # (Auto) 1.8 X10^3/uL (1.3-2.9) 10/14/24 04:48 [place] # (Auto) 1.7 x10^3/uL (0.3-0.8) H 10/14/24 04:48 Eos # (Auto) 0.0 x10^3/uL (0.0-0.2) 10/14/24 04:48 Baso # (Auto) 0.0 X10^3/uL (0.0-0.1) 10/14/24 04:48 Absolute Nucleated RBC 0.1 /100WBC 10/14/24 04:48 Sample Site Rrad 10/11/24 21:54 ABG pH 7.370 (7.35-7.45) 10/11/24 21:54 ABG pCO2 51.0 mmHg (35.0-45.0) H* 10/11/24 21:54 ABG pO2 137.0 mmHg (80.0-100.0) H 10/11/24 21:54 ABG HCO3 29.5 mmol/L (22-26) H 10/11/24 21:54 ABG O2 Saturation 99.0 % (90-100) 10/11/24 21:54 ABG Base Excess 3.3 mmol/L (-2.0-2.0) H 10/11/24 21:54 Louis Test Pos 10/11/24 21:54 A-a Gradient -1.0 mmHg 10/11/24 21:54 FiO2 28.0 10/11/24 21:54 Blood Gas Comments Da abg well-mtf/mt 10/11/24 21:54 Sodium 142 mmol/L (136-145) 10/14/24 04:48 Corrected Sodium 144 mmol/L (136-145) 10/14/24 04:48 Potassium 4.0 mmol/L (3.5-5.1) 10/14/24 04:48 Chloride 104 mmol/L (98-107) 10/14/24 04:48 Carbon Dioxide 34.8 mmol/L (21-32) H 10/14/24 04:48 BUN 18 mg/dL (7-18) 10/14/24 04:48 Creatinine 0.83 mg/dL (0.55-1.02) 10/14/24 04:48 Est GFR (MDRD) Af Amer > 60 (>60) 10/14/24 04:48 Est GFR (MDRD) Non-Af > 60 (>60) 10/14/24 04:48 Glucose 175 mg/dL (65-99) H 10/14/24 04:48 POC Glucose (mg/dL) 247 mg/dL (65-99) H 10/14/24 19:36 Calcium 9.5 mg/dL (8.5-10.1) 10/14/24 04:48 Corrected Calcium 10.4 mg/dL (8.5-10.1) H 10/14/24 04:48 Magnesium 2.3 mg/dL (2.0-2.9) 10/14/24 04:48 Total Bilirubin 0.30 mg/dL (0.2-1.0) 10/14/24 04:48 AST 19 Units/L (15-37) 10/14/24 04:48 ALT 23 Units/L (12-78) 10/14/24 04:48 Alkaline Phosphatase 130 Units/L (46-116) H 10/14/24 04:48 Creatine Kinase 56 Units/L (26-192) 10/11/24 16:11 Troponin I High Sens 20.1 ng/L (4.0-60.0) 10/12/24 04:46 B-Natriuretic Peptide 451 pg/mL (0-79) H 10/14/24 04:48 Total Protein 6.5 g/dL (6.4-8.2) 10/14/24 04:48 Albumin 2.9 g/dL (3.4-5.0) L 10/14/24 04:48 Globulin 3.6 g/dL (2.5-4.5) 10/14/24 04:48 Albumin/Globulin Ratio 0.8 Ratio (1.1-2.1) L 10/14/24 04:48 TSH 3rd Generation 0.343 uIU/mL (0.358-3.74) L 10/12/24 04:45 Specimen Type Clean catch urine 10/12/24 07:49 Urine Color Yellow (YELLOW) 10/12/24 07:49 Urine Appearance Clear (CLEAR) 10/12/24 07:49 Urine pH 6.0 (5.0 - 8.0) 10/12/24 07:49 Ur Specific [place] 1.015 (1.000-1.030) 10/12/24 07:49 Urine Protein Negative (NEGATIVE) 10/12/24 07:49 Urine Glucose (UA) Negative (NEGATIVE) 10/12/24 07:49 Urine Ketones Negative (NEGATIVE) 10/12/24 07:49 Urine Blood 1+ (NEGATIVE) 10/12/24 07:49 Urine Nitrite Negative (NEGATIVE) 10/12/24 07:49 Urine Bilirubin Negative (NEGATIVE) 10/12/24 07:49 Urine Urobilinogen Normal (NORMAL) 10/12/24 07:49 Ur Leukocyte Esterase Negative (NEGATIVE) 10/12/24 07:49 Urine RBC 0-2 /HPF (0-3) 10/12/24 07:49 Urine WBC 0-2 /HPF (0-5) 10/12/24 07:49 Ur Squamous Epith Cells Rare /HPF (NEGATIVE) 10/12/24 07:49 Urine Bacteria Negative /HPF (NEGATIVE) 10/12/24 07:49 Urine Yeast Few /HPF (NEGATIVE) 10/11/24 17:55 Ur Culture Indicated? No/not indicated 10/12/24 07:49 Digoxin 0.47 ng/mL (0.9-2) L 10/14/24 04:48 SARS-CoV-2 (PCR) Negative (NEGATIVE) 10/11/24 16:03 Influenza Type A (PCR) Negative (NEGATIVE) 10/11/24 16:03 Influenza Type B (PCR) Negative (NEGATIVE) 10/11/24 16:03 RSV (PCR) Negative (NEGATIVE) 10/11/24 16:03 Plan (1) CHF exacerbation: Status: Acute Qualifiers: Heart failure type: unspecified Qualified Code(s): I50.9 - Heart failure, unspecified Plan: (2) COPD exacerbation: Status: Acute Plan: Continue current treatment regimen including levalbuterol, digoxin, and inhaled budesonide. Monitor digoxin levels and adjust as needed. Continue r espiratory treatments Xopenex, acetylcysteine (Mucomyst) and budesonide. Decreasing Medrol to 40 mg IV twice daily. (3) Thoracic aortic aneurysm (TAA): Status: Acute (4) Cardiomyopathy: Status: None (5) HLD (hyperlipidemia): Status: None (6) Essential hypertension: Status: None (7) Atrial fibrillation: Status: None Plan: Continue anticoagulation with Eliquis Continue carvedilol and digoxin at this time. Repeat digoxin level tomorrow morning. (8) Acute cystitis: Status: Acute
[2024-10-15 06:00] LABS: BASOPHILS # (AUTO) 0.1 X10^3/uL (0.0-0.1); BASOPHILS % (AUTO) 0.7 % (0.2-1.0); EOSINOPHILS # (AUTO) 0.2 x10^3/uL (0.0-0.2); EOSINOPHILS % (AUTO) 1.6 % (0.9-2.9); HEMATOCRIT 45.9 % (36.0-47.0); HEMOGLOBIN 15.2 g/dL (12.0-16.0); LYMPHOCYTES # (AUTO) 2.8 X10^3/uL (1.3-2.9); LYMPHOCYTES % (AUTO) 24.9 % (21.0-51.0); MEAN CORPUSCULAR HEMOGLOBIN 31.2 pg (27.0-34.0); MEAN CORPUSCULAR HGB CONC 33.1 g/dL (33.0-35.0); MEAN CORPUSCULAR VOLUME 94.4 fL (80.0-100.0); MONOCYTES # (AUTO) 1.6 x10^3/uL (0.3-0.8); MONOCYTES % (AUTO) 14.4 % (0.0-13.0); NEUTROPHILS # (AUTO) 6.7 x10^3/uL (2.2-4.8); NEUTROPHILS % (AUTO) 58.4 % (42.0-75.0); PLATELET COUNT 225 X10^3/uL (150.0-450.0); RED BLOOD COUNT 4.86 X10^6/uL (3.5-5.4); RED CELL DISTRIBUTION WIDTH 15.4 % (11.6-16.5); WHITE BLOOD COUNT 11.5 X10^3/uL (3.6-10.0)
[2024-10-15 06:15] LABS: ALANINE AMINOTRANSFERASE 32 Units/L (12-78); ALBUMIN 2.8 g/dL (3.4-5.0); ALKALINE PHOSPHATASE 147 Units/L (46-116); ASPARTATE AMINO TRANSFERASE 26 Units/L (15-37); BLOOD UREA NITROGEN 22 mg/dL (7-18); CARBON DIOXIDE 32.9 mmol/L (21-32); CHLORIDE 104 mmol/L (98-107); COR NA(FOR HYPERGLY) 144 mmol/L (136-145); CREATININE 0.95 mg/dL (0.55-1.02); DIGOXIN 0.36 ng/mL (0.9-2); GLUCOSE 177 mg/dL (65-99); POTASSIUM 3.9 mmol/L (3.5-5.1); SODIUM 142 mmol/L (136-145); TOTAL PROTEIN 6.5 g/dL (6.4-8.2); eGFR NON BLACK RACES 59 (>60)
--- NOTE | 2024-10-15 07:54 | NOTE.SOAP ---
Soap Note Note for Day of Date of Exam: 10/15/24 Subjective Data Subjective Data: no oxygen- sob improved, hr down- wants to go home Objective Data Objective Data: p 88 bp 100-110 lungs clear minimal edema labs: bnp 236 k 3.9 hct 46 wbc 11.5 cr 0.95 Assessment Assessment: copd/chf/afib/cardiomyopathy Plan Plan: ok to go home with digoxin added, no scotty but entresto- po lasix daily- will f/u w me in week- future: cath/ablate avnode/bi v pacer if she agreeable
[2024-10-15] MEDS: LASIX PO SCH (08:23)
[2024-10-15] MEDS: SOLU-Medrol 40 MG VIAL IVP SCH (08:39)
--- NOTE | 2024-10-15 08:56 | RAD ---
EXAM: Portable AP chest HISTORY: CHF COPD COMPARISON: 10/14/2024 FINDINGS: Similar cardiomegaly and stable pacing device position. There is no evidence for developing pneumon ia, CHF/edema. IMPRESSION: No change. THIS IS AN ELECTRONICALLY VERIFIED FINAL REPORT 10/15/2024 8:52 AM - Electronically signed by Suman Sales MD
[2024-10-15 12:13] VITALS: BP 115/78; PULSE 97; RESP 20; TEMP 97.2; O2SAT 96
== END 2024-10-15 14:00 | disposition home health service (06) ==
LOC: MED/SURG 15:12 → ER 15:12 → MED/SURG 20:15
PROVIDERS: ADMIT Internal Medicine; ATTEND Internal Medicine
DX: N30.00 Acute cystitis without hematuria; J44.1 Chronic obstructive pulmonary disease with (acute) exacerbation; R06.02 Shortness of breath; Z95.0 Presence of cardiac pacemaker; R00.0 Tachycardia, unspecified; I71.20 Thoracic aortic aneurysm, without rupture, unspecified; I11.0 Hypertensive heart disease with heart failure; I48.91 Unspecified atrial fibrillation; E11.65 Type 2 diabetes mellitus with hyperglycemia; E78.5 Hyperlipidemia, unspecified; E83.42 Hypomagnesemia; I42.9 Cardiomyopathy, unspecified; B96.29 Other Escherichia coli [E. coli] as the cause of diseases classified elsewhere; E03.8 Other specified hypothyroidism; Z03.818 Encounter for observation for suspected exposure to other biological agents ruled out; Z79.01 Long term (current) use of anticoagulants; R94.31 Abnormal electrocardiogram [ECG] [EKG]; I50.9 Heart failure, unspecified; E87.1 Hypo-osmolality and hyponatremia